=== PATIENT | male | born 1960 | race American Indian/Alaskan Native ===

== ENCOUNTER → 2018-07-20 | Outpatient (CLI) | payer BC ==
[2018-07-20 16:33] LABS: CLARITY URINE CLEAR (CLEAR); COLOR URINE YELLOW (YELLOW); KETONES URINE NEGATIVE (NEGATIVE); LEUKOCYTE ESTERASE URINE NEGATIVE (NEGATIVE); NITRITE URINE NEGATIVE (NEGATIVE); OCCULT BLOOD URINE NEGATIVE (NEGATIVE); PH URINE 7.5 (4.5-8.0); PROTEIN URINE NEGATIVE (NEGATIVE); SPECIFIC GRAVITY URINE 1.006 (1.005-1.030); UROBILINOGEN URINE 0.2 E.U./dL (0.2-1.0)
[2018-07-20 16:35] LABS: BASOPHILS % 1.5 % (0.0-2.0); HEMATOCRIT. 41.9 % (42.0-52.0); HEMOGLOBIN. 14.3 g/dL (14.0-18.0); LYMPHOCYTES % 42.1 % (20.0-50.0); MEAN CORPUSCULAR HEMOGLOBIN 33.6 pg (28.0-32.0); MEAN CORPUSCULAR VOLUME 98.4 fL (80.0-94.0); MEAN PLATELET VOLUME 7.6 fl (7.4-10.4); MONOCYTES % 6.7 % (2.0-8.0); NEUTROPHILS % 47.7 % (40.0-76.0); PLATELET 306 x1000/uL (130-400); RED BLOOD CELL COUNT 4.25 mill/uL (4.7-6.1); RED CELL DISTRIBUTION WIDTH 13.2 % (11.6-14.6)
[2018-07-20 16:58] LABS: CHLORIDE 102 mEq/L (98-107)
[2018-07-20 17:05] LABS: C REACTIVE PROTEIN QUANT 0.3 mg/L (0.0-3.0); PHOSPHORUS 3.1 mg/dL (2.5-4.9)
[2018-07-20 17:06] LABS: HDL CHOLESTEROL 91 mg/dL (40-59); LDL CHOLESTEROL 68 mg/dL (5-100)
[2018-07-20 17:11] LABS: T4 FREE 0.89 ng/dL (0.76-1.46); TOTAL IRON BINDING CAPACITY 309 ug/dL (250-450)
[2018-07-20 17:14] LABS: CORTISOL 8.9 ucg/dL; PROSTRATE SPECIFIC AG TOTAL 0.44 ng/mL (0.0-4.0)
[2018-07-20 17:25] LABS: HEPATITIS B SURFACE ANTIGEN NEGATIVE
[2018-07-20 17:54] LABS: HEPATITIS A AB IGM NEGATIVE (NEGATIVE)
[2018-07-22 09:06] LABS: FOLICLE STIMULATING HORMONE 10.6 mIU/mL (1.5-12.4); HELICOBACTER PYLORI AB IGG 0.7 (0.00-0.79); LUTEINIZING HORMONE 7.2 mIU/mL (1.7-8.6); PROGESTERONE 0.2 ng/mL (0.0-0.5); TRANSFERRIN 243 mg/dL (200-370); VITAMIN D 25-OH 17.1 ng/mL (30.0-100.0)
== END | disposition home or self-care (01) ==
LOC: LAB 15:35
PROVIDERS: ATTEND Internal Medicine
DX: Z00.01 Encounter for general adult medical examination with abnormal findings (principal); I10 Essential (primary) hypertension; R10.9 Unspecified abdominal pain; E55.9 Vitamin D deficiency, unspecified; E78.00 Pure hypercholesterolemia, unspecified; R86.1 Abnormal level of hormones in specimens from male genital organs; D68.9 Coagulation defect, unspecified; N41.9 Inflammatory disease of prostate, unspecified; R79.9 Abnormal finding of blood chemistry, unspecified; R94.5 Abnormal results of liver function studies; R60.9 Edema, unspecified
CPT/HCPCS: 36415; 80061; 80076; 82024; 82248; 82306; 82533; 82565; 82626; 83001; 83002; 83036; 83540; 83550; 84100; 84144; 84153; 84403; 84439; 84443; 84466; 84481; 84550; 85651; 86140; 86677; 86705; 86709; 86803; 87340; G0103

== ENCOUNTER → 2019-09-07 | Outpatient (CLI) | payer BC ==
[2019-09-07 17:02] LABS: CLARITY URINE CLEAR (CLEAR); COLOR URINE YELLOW (YELLOW); KETONES URINE NEGATIVE (NEGATIVE); LEUKOCYTE ESTERASE URINE NEGATIVE (NEGATIVE); NITRITE URINE NEGATIVE (NEGATIVE); OCCULT BLOOD URINE NEGATIVE (NEGATIVE); PH URINE 6.5 (4.5-8.0); PROTEIN URINE NEGATIVE (NEGATIVE); SPECIFIC GRAVITY URINE 1.005 (1.005-1.030); UROBILINOGEN URINE 0.2 E.U./dL (0.2-1.0)
[2019-09-07 17:09] LABS: CHLORIDE 104 mEq/L (98-107)
[2019-09-07 17:10] LABS: HEMATOCRIT. 39.2 % (42.0-52.0); HEMOGLOBIN. 13.4 g/dL (14.0-18.0); MEAN CORPUSCULAR HEMOGLOBIN 32.2 pg (28.0-32.0); MEAN CORPUSCULAR VOLUME 93.8 fL (80.0-94.0); PLATELET 315 x1000/uL (130-400); RED BLOOD CELL COUNT 4.18 mill/uL (4.7-6.1); RED CELL DISTRIBUTION WIDTH 13.1 % (11.6-14.6)
[2019-09-07 17:15] LABS: C REACTIVE PROTEIN QUANT 0.7 mg/L (0.0-3.0); PHOSPHORUS 3.2 mg/dL (2.5-4.9)
[2019-09-07 17:16] LABS: LDL CHOLESTEROL 92 mg/dL (5-100)
[2019-09-07 17:17] LABS: HDL CHOLESTEROL 77 mg/dL (40-59); TOTAL IRON BINDING CAPACITY 286 ug/dL (250-450)
[2019-09-07 17:25] LABS: CORTISOL 4.6 ucg/dL; PLATELET ESTIMATE NORMAL; PROSTRATE SPECIFIC AG TOTAL 0.48 ng/mL (0.0-4.0); TRIOIODOTHYRONINE TOTAL 0.92 ng/ml (0.60-1.81)
[2019-09-07 17:37] LABS: HEPATITIS B SURFACE ANTIGEN NEGATIVE
[2019-09-07 18:05] LABS: HEPATITIS A AB IGM NEGATIVE (NEGATIVE)
[2019-09-09 09:06] LABS: FOLICLE STIMULATING HORMONE 9.1 mIU/mL (1.5-12.4); LUTEINIZING HORMONE 6.4 mIU/mL (1.7-8.6); PROGESTERONE 0.2 ng/mL (0.0-0.5); TRANSFERRIN 250 mg/dL (200-370); VITAMIN D 25-OH 32.4 ng/mL (30.0-100.0)
== END | disposition home or self-care (01) ==
LOC: LAB 15:46
PROVIDERS: ATTEND Internal Medicine
DX: Z00.00 Encounter for general adult medical examination without abnormal findings (principal); R86.1 Abnormal level of hormones in specimens from male genital organs; N41.9 Inflammatory disease of prostate, unspecified; E55.9 Vitamin D deficiency, unspecified; D68.9 Coagulation defect, unspecified; I10 Essential (primary) hypertension; R60.9 Edema, unspecified; N39.0 Urinary tract infection, site not specified; R94.6 Abnormal results of thyroid function studies; D64.9 Anemia, unspecified; E78.00 Pure hypercholesterolemia, unspecified; R10.9 Unspecified abdominal pain; R94.5 Abnormal results of liver function studies
CPT/HCPCS: 36415; 80053; 80061; 80076; 81003; 82024; 82248; 82306; 82533; 82626; 83001; 83002; 83036; 83540; 83550; 83735; 84100; 84144; 84153; 84403; 84436; 84439; 84443; 84466; 84480; 84481; 84550; 85025; 85651; 86140; 86677; 86705; 86709; 86803; 87340; G0103

== ENCOUNTER → 2019-11-23 | Outpatient (CLI) | payer BC | END | disposition home or self-care (01) | LOC: LAB 14:34 | PROVIDERS: ATTEND Internal Medicine | DX: E78.00 Pure hypercholesterolemia, unspecified (principal) | CPT/HCPCS: 36415; 80061 ==

== ENCOUNTER → 2020-02-01 | Outpatient (CLI) | payer BC ==
[2020-02-01 15:46] LABS: BASOPHILS % 1.5 % (0.0-2.0); HEMATOCRIT. 40.6 % (42.0-52.0); HEMOGLOBIN. 13.9 g/dL (14.0-18.0); LYMPHOCYTES % 48.9 % (20.0-50.0); MEAN CORPUSCULAR HEMOGLOBIN 31.9 pg (28.0-32.0); MEAN CORPUSCULAR VOLUME 92.9 fL (80.0-94.0); MEAN PLATELET VOLUME 7.9 fl (7.4-10.4); MONOCYTES % 5.8 % (2.0-8.0); NEUTROPHILS % 39.8 % (40.0-76.0); PLATELET 283 x1000/uL (130-400); RED BLOOD CELL COUNT 4.37 mill/uL (4.7-6.1); RED CELL DISTRIBUTION WIDTH 13.4 % (11.6-14.6)
== END | disposition home or self-care (01) ==
LOC: LAB 15:14
PROVIDERS: ATTEND Internal Medicine
DX: E78.5 Hyperlipidemia, unspecified (principal)
CPT/HCPCS: 36415; 80061; 80076; 85025

== ENCOUNTER → 2020-05-08 | Outpatient (CLI) | payer BC | END | disposition home or self-care (01) | LOC: LAB 15:54 | PROVIDERS: ATTEND Internal Medicine | DX: E78.5 Hyperlipidemia, unspecified (principal); R94.5 Abnormal results of liver function studies | CPT/HCPCS: 36415; 80061; 80076 ==

== ENCOUNTER → 2020-07-04 | Outpatient (CLI) | payer BC | END | disposition home or self-care (01) | LOC: LAB 14:38 | PROVIDERS: ATTEND Internal Medicine | DX: E78.00 Pure hypercholesterolemia, unspecified (principal) | CPT/HCPCS: 36415; 80061 ==

== ENCOUNTER → 2020-09-25 | Outpatient (CLI) | payer BC | END | disposition home or self-care (01) | LOC: LAB 15:04 | PROVIDERS: ATTEND Internal Medicine | DX: E78.00 Pure hypercholesterolemia, unspecified (principal) | CPT/HCPCS: 36415; 80061 ==

== ENCOUNTER → 2023-04-07 | Outpatient (CLI) | payer BC | END | disposition home or self-care (01) | LOC: RAD 11:56 | PROVIDERS: ATTEND Internal Medicine | DX: J20.9 Acute bronchitis, unspecified (principal) | CPT/HCPCS: 71046 ==

== ENCOUNTER → 2023-04-07 | Outpatient (CLI) | payer BC ==
[2023-04-07 12:57] LABS: CLARITY URINE CLEAR (CLEAR); COLOR URINE YELLOW (YELLOW); GLUCOSE URINE NEGATIVE (NEGATIVE); KETONES URINE NEGATIVE (NEGATIVE); LEUKOCYTE ESTERASE URINE NEGATIVE (NEGATIVE); NITRITE URINE NEGATIVE (NEGATIVE); OCCULT BLOOD URINE NEGATIVE (NEGATIVE); PROTEIN URINE NEGATIVE (NEGATIVE); SPECIFIC GRAVITY URINE 1.004 (1.005-1.030); UROBILINOGEN URINE 0.2 E.U./dL (0.2-1.0)
[2023-04-07 13:01] LABS: BASOPHILS % 1.3 % (0.0-2.0); EOSINOPHILS % 2.9 % (0.0-5.0); HEMATOCRIT. 39.4 % (42.0-52.0); HEMOGLOBIN. 13.4 g/dL (14.0-18.0); LYMPHOCYTES % 32.1 % (20.0-50.0); MEAN CORPUSCULAR HEMOGLOBIN 32.3 pg (28.0-32.0); MEAN CORPUSCULAR VOLUME 94.9 fL (80.0-94.0); MONOCYTES % 7.1 % (2.0-8.0); NEUTROPHILS % 56.6 % (40.0-76.0); PLATELET 330 x1000/uL (130-400); RED BLOOD CELL COUNT 4.15 mill/uL (4.7-6.1); RED CELL DISTRIBUTION WIDTH 13.3 % (11.6-14.6); WHITE BLOOD COUNT 6.4 x1000/uL (4.5-11.0)
[2023-04-07 13:38] LABS: CHLORIDE 101 mEq/L (98-107); INDEX HEMOLYSI 1 (1-3); INDEX ICTERIC 1 (1-4); INDEX LIPEMIC 1 (1-3); POTASSIUM 3.8 mEq/L (3.5-5.1); SODIUM 136 mEq/L (136-145)
[2023-04-07 14:01] LABS: ALANINE AMINOTRANSFERASE 32 IU/L (13-61); ASPARTATE AMINOTRANSFERASE 20 IU/L (15-37); BILIRUBIN DIRECT 0.2 mg/dL (0.0-0.2); BILIRUBIN TOTAL 0.7 mg/dL (0.1-1.0); CALCIUM 9.3 mg/dL (8.5-10.1); CARBON DIOXIDE 30 mEq/L (21-32); CHOLESTEROL 156 mg/dL (<200); CREATININE 0.7 mg/dL (0.6-1.3); HDL CHOLESTEROL 101 mg/dL (40-59); IRON 129 ug/dL (50-175); LDL CHOLESTEROL 36 mg/dL (5-100); PROTEIN TOTAL 8.1 g/dL (6.0-8.3); T4 FREE 0.95 ng/dL (0.76-1.46); THYROID STIMULATING HORMONE 0.72 uIU/mL (0.36-3.74); TRIGLYCERIDE 113 mg/dL (0-150); UREA NITROGEN BLOOD 11 mg/dL (7-21)
[2023-04-07 14:31] LABS: ERYTHROCYTE SEDIMENTATION RATE 12 mm/hr (0-20)
[2023-04-07 15:17] LABS: GLUCOSE 97 mg/dL (70-105); TOTAL IRON BINDING CAPACITY 324 ug/dL (250-450)
[2023-04-07 15:26] LABS: HEPATITIS B SURFACE ANTIGEN NEGATIVE
[2023-04-07 15:52] LABS: HEPATITIS C VIR.AB 0.12 INDEXVAL (0.00-0.80)
[2023-04-07 15:54] LABS: HEPATITIS B CORE AB IGM NEGATIVE
[2023-04-07 15:55] LABS: HEPATITIS A AB IGM NEGATIVE (NEGATIVE)
[2023-04-09 09:07] LABS: FOLICLE STIMULATING HORMONE 9.8 mIU/mL (1.5-12.4); LUTEINIZING HORMONE 5.3 mIU/mL (1.7-8.6); VITAMIN D 25-OH 22.1 ng/mL (30.0-100.0)
== END | disposition home or self-care (01) ==
LOC: LAB 12:05
PROVIDERS: ATTEND Internal Medicine
DX: R05.1 Acute cough (principal); Z20.822 Contact with and (suspected) exposure to COVID-19
CPT/HCPCS: 87426; 80061; 80053; 81003; 82248; 83036; 84439; 83540; 83550; 84443; 85025; 85651; 87340; 86803; 36415; 86705; 86709; 82626; 82306; 83001; 83002; 86677; 84481; C9803

== ENCOUNTER → 2023-04-16 | Outpatient (CLI) | payer BC ==
[~2023-04-16] MED LIST: IOHEXOL-300 100 ML BOTTLE ONE
== END | disposition home or self-care (01) ==
LOC: CT 14:42
PROVIDERS: ATTEND Internal Medicine
DX: R91.8 Other nonspecific abnormal finding of lung field (principal); M47.814 Spondylosis without myelopathy or radiculopathy, thoracic region
CPT/HCPCS: 71260; Q9967

== ENCOUNTER → 2023-05-14 | Outpatient (CLI) | payer BC ==
[~2023-05-14] MED LIST changes: +GADOTERATE MEGLUMINE 5 MMOL/10 ML VIAL IV ONE; -IOHEXOL-300 100 ML BOTTLE ONE
[2023-05-14 12:16] LABS: BASOPHILS % 0.6 % (0.0-2.0); EOSINOPHILS % 0.2 % (0.0-5.0); HEMATOCRIT. 42.1 % (42.0-52.0); HEMOGLOBIN. 14.2 g/dL (14.0-18.0); MEAN CORPUSCULAR HEMOGLOBIN 31.7 pg (28.0-32.0); MEAN CORPUSCULAR HGB CONC 33.9 g/dL (31.0-37.0); MEAN CORPUSCULAR VOLUME 93.5 fL (80.0-94.0); MEAN PLATELET VOLUME 7.7 fl (7.4-10.4); MONOCYTES % 4.7 % (2.0-8.0); NEUTROPHILS % 77.5 % (40.0-76.0); PLATELET 317 x1000/uL (130-400); RED CELL DISTRIBUTION WIDTH 13.6 % (11.6-14.6); WHITE BLOOD COUNT 6.5 x1000/uL (4.5-11.0)
[2023-05-14 12:23] LABS: INR 0.9; PARTIAL THROMBOPLASTIN TIME 25.2 sec (23.4-31.0); PROTHROMBIN TIME 9.8 sec (9.6-11.0)
[2023-05-14 13:16] LABS: ERYTHROCYTE SEDIMENTATION RATE 2 mm/hr (0-20)
== END | disposition home or self-care (01) ==
LOC: MRI 11:37
PROVIDERS: ATTEND Internal Medicine
DX: C46.52 Kaposi's sarcoma of left lung (principal); C79.31 Secondary malignant neoplasm of brain
CPT/HCPCS: 70553; 85025; 85610; 85651; 85730; 82378; 36415; 86301; 86304; A9577

== ENCOUNTER → 2023-05-21 | Outpatient (CLI) | payer BC ==
[2023-05-21 16:03] LABS: INR 0.9; PARTIAL THROMBOPLASTIN TIME 24.5 sec (23.4-31.0); PROTHROMBIN TIME 10.1 sec (9.6-11.0)
== END | disposition home or self-care (01) ==
LOC: LAB 14:46
PROVIDERS: ATTEND Internal Medicine Critical Care Medicine
DX: Z01.812 Encounter for preprocedural laboratory examination (principal)
CPT/HCPCS: 36415

== ENCOUNTER → 2023-05-26 | Outpatient (CLI) | payer BC | END | disposition home or self-care (01) | LOC: PF 13:28 | PROVIDERS: ATTEND Internal Medicine Critical Care Medicine | DX: Z20.822 Contact with and (suspected) exposure to COVID-19 (principal) | CPT/HCPCS: 87426; C9803 ==

== ENCOUNTER → 2023-05-28 | Day surgery (SDC) | payer BC ==
[2023-05-28] VITALS (9 sets, daily range): BP systolic 126–145; BP diastolic 70–95; PULSE 91–99; RESP 12–14
[~2023-05-28] VITALS: Ht 167.6 cm; Wt 59.0 kg
[~2023-05-28] MED LIST changes: +FENTANYL CITRATE/PF 50MCG/ML 2ML VIAL IV ONE; +FENTANYL CITRATE/PF 50MCG/ML 2ML VIAL ONE; -GADOTERATE MEGLUMINE 5 MMOL/10 ML VIAL IV ONE; +HYDROCODONE/ACETAMINOPHEN 5/325MG TABLET PO PRN; +LIDOCAINE HCL 1% 10 MG/ML 10ML VIAL ONE; +NALOXONE HCL 0.4MG/ML VIAL IV PRN; +SODIUM BICARBONATE 4% (2.4MEQ) 5ML VIAL IV ONE
== END | disposition home or self-care (01) ==
LOC: RAD 09:34
PROVIDERS: ATTEND Internal Medicine
DX: R91.1 Solitary pulmonary nodule (principal); I10 Essential (primary) hypertension; Z87.891 Personal history of nicotine dependence; Z79.899 Other long term (current) drug therapy; Z98.890 Other specified postprocedural states
CPT/HCPCS: 32408; 88305; 71045; J3010; J3490 ×2; 88312; 99152; 99153; G0500

== ENCOUNTER → 2023-07-02 | Outpatient (CLI) | payer BC ==
[~2023-07-02] MED LIST changes: -FENTANYL CITRATE/PF 50MCG/ML 2ML VIAL IV ONE; -FENTANYL CITRATE/PF 50MCG/ML 2ML VIAL ONE; +GADOTERATE MEGLUMINE 5 MMOL/10 ML VIAL IV ONE; -HYDROCODONE/ACETAMINOPHEN 5/325MG TABLET PO PRN; -LIDOCAINE HCL 1% 10 MG/ML 10ML VIAL ONE; -NALOXONE HCL 0.4MG/ML VIAL IV PRN; -SODIUM BICARBONATE 4% (2.4MEQ) 5ML VIAL IV ONE
== END | disposition home or self-care (01) ==
LOC: MRI 10:42
DX: C79.31 Secondary malignant neoplasm of brain (principal); C34.92 Malignant neoplasm of unspecified part of left bronchus or lung; C34.90 Malignant neoplasm of unspecified part of unspecified bronchus or lung; C79.51 Secondary malignant neoplasm of bone
CPT/HCPCS: 70553; A9577

== ENCOUNTER → 2023-07-16 | Day surgery (SDC) | payer BC ==
[~2023-07-16] VITALS: Ht 167.6 cm; Wt 61.7 kg
[2023-07-16] VITALS (9 sets, daily range): BP systolic 121–138; BP diastolic 81–89; PULSE 79–96; RESP 14–15
[~2023-07-16] MED LIST changes: +FENTANYL CITRATE/PF 50MCG/ML 2ML VIAL IV ONE; +FENTANYL CITRATE/PF 50MCG/ML 2ML VIAL ONE; -GADOTERATE MEGLUMINE 5 MMOL/10 ML VIAL IV ONE; +LIDOCAINE HCL 1% 10 MG/ML 10ML VIAL ONE; +SODIUM BICARBONATE 4% (2.4MEQ) 5ML VIAL IV ONE
== END | disposition home or self-care (01) ==
LOC: RAD 09:40
PROVIDERS: ATTEND Internal Medicine
DX: C34.92 Malignant neoplasm of unspecified part of left bronchus or lung (principal); C79.31 Secondary malignant neoplasm of brain; C79.51 Secondary malignant neoplasm of bone; Z79.899 Other long term (current) drug therapy; Z98.890 Other specified postprocedural states
CPT/HCPCS: 32408; 88305; 71045; J3010; J3490 ×2; 99152; 99153; G0500

== ENCOUNTER → 2023-08-18 | Outpatient (CLI) | payer BC ==
[~2023-08-18] MED LIST changes: -FENTANYL CITRATE/PF 50MCG/ML 2ML VIAL IV ONE; -FENTANYL CITRATE/PF 50MCG/ML 2ML VIAL ONE; +GADOTERATE MEGLUMINE 5 MMOL/10 ML VIAL IV ONE; -LIDOCAINE HCL 1% 10 MG/ML 10ML VIAL ONE; -SODIUM BICARBONATE 4% (2.4MEQ) 5ML VIAL IV ONE
== END | disposition home or self-care (01) ==
LOC: MRI 12:47
PROVIDERS: ATTEND Internal Medicine
DX: M51.37 Other intervertebral disc degeneration, lumbosacral region (principal); M51.36 Other intervertebral disc degeneration, lumbar region; C34.92 Malignant neoplasm of unspecified part of left bronchus or lung; C79.51 Secondary malignant neoplasm of bone
CPT/HCPCS: 72157; 72158; A9577